=== PATIENT | female | born 1975 | race Caucasian/White ===

== ENCOUNTER 2016-08-14 13:23 | Inpatient (IN) | payer BC ==
--- NOTE | 2016-08-13 19:30 | NUR ---
PATIENT IN BED WATCHING TV. HOB 30 DEGREES. AAOX4. RR EVEN AND UNLABORED. 0 S/S OF DISTRESS. STATES PAIN IS A 4/10 DUE TO A HEADACHE. TYLENOL GIVEN. WILL REASSESS. IV TO LEFT FA PATENT WITH NO REDNESS OR SWELLING. FAMILY AT BEDSIDE. SRX2. BED LOW. CALL LIGHT WITHIN REACH.
[~2016-08-14] VITALS: Ht 170.2 cm; Wt 122.7 kg
--- NOTE | 2016-08-14 14:00 | NUR ---
RECEIVED TO ROOM [address] MASSEY'S OFFICE. A/O X3. REPORTS NO C/O AT THIS TIME. HAVEING GENERALIZED PAIN. SKIN IS INTACT. FAMILY IN ROOM NOW. IV SITED TO LEFT FOREARM AFTER ONE ATTEMPT WITH 20G. OFF UNIT VIA FOR CXR.
[2016-08-14 14:01] VITALS: BP 121/74; Ht 170.2 cm; Wt 122.7 kg
[2016-08-14 14:27] LABS: BASOPHILS 0.8 % (0.0-2.0); EOSINOPHILS 0.3 % (0-7); HEMATOCRIT 40.6 % (36.0-48.0); HEMOGLOBIN 13.7 g/dL (12-16); IMMATURE GRANULOCYTES 0.6 % (0-5); LYMPHOCYTES 36.2 % (15-50); MCHC 33.7 g/dL (31.0-37.0); MCV 85.8 fL (80.0-100.0); MEAN PLATELET VOLUME 10.3 fL (7.4-10.4); MONOCYTES 18.1 % (2-11); RBC 4.73 10x6/uL (4.00-5.40); RDW 14.1 % (11.5-14.5); WBC 3.6 10x3/uL (4.8-10.8)
--- NOTE | 2016-08-14 14:38 | NUR ---
Patient Name: ANABELA GEORGE Admission Status: Elective Accout number: [id number] Admission Date: 08-14-2016 : 1975 Admission Diagnosis: Attending: CANDY Current LOS: 1 Anticipated DC Date: 08-16-2016 Planned Disposition: Home or Self Care Primary Insurance: [employer] [facility] Discharge Planning Comments: CM MET WITH PATIENT REGARDING D/C NEEDS AND PLANS. PATIENT STATED SHE LIVES WITH HER FAMILY AND HER SPOUSE (ADÁN) WILL DRIVE HER HOME AT DISCHARGE. PATIENT STATED SHE IS INDEPENDENT WITH HER CARE AND HAS NO DME AT HOME. PATIENT STATED THERE ARE NO STEPS OR STAIRS AT HER HOME. PATIENTS PCP IS DR. VALERIO AND USES [email or web address] AT THE [facility]. PATIENT HAS NOT HAD HOME HEALTH. CM WILL CONTINUE TO FOLLOW PATIENT WITH D/C NEEDS AND PLANS. [facility] AT [address] ADÁN GEORGE (SPOUSE) [phone] Proposal Lead Writer: Eusebia Bosch Is the patient Alert and Oriented? Yes 0 * How many steps to enter\exit or inside your home? 0 0 * PCP DR. VALERIO 0 * [facility] 0 * Preadmission Environment Home with Family 0 * ADLs Independent 0 * Equipment None 0 * List name and contact numbers for known caregivers / representatives who currently or will assist patient after discharge: ADÁN GEORGE (SPOUSE) [phone] 0 * Community resources currently utilized None 0 * Additional services required to return to the preadmission environment? Yes 0 * Can the patient safely return to the preadmission environment? Yes 0 * Has this patient been hospitalized within the prior 30 days at any hospital? No 0 Grand Total: 0
[2016-08-14 14:40] LABS: APTT 28.3 SECONDS (22.8-39.4); INR 1.14 (0.85-1.17); PROTIME 14.5 SECONDS (11.6-15.0)
[2016-08-14 14:41] LABS: D-DIMER-QUANTITATIVE 3.14 ug/mLFEU (0.20-0.54); PLATELET COUNT 45 10x3/uL (130-400)
[2016-08-14 15:04] LABS: ALBUMIN 3.2 g/dL (3.4-5.0); ANION GAP 12.4 mmol/L (8-16); BILIRUBIN - TOTAL 1.37 mg/dL (0.2-1.3); CALCIUM 8.5 mg/dL (8.5-10.1); CARBON DIOXIDE 27.1 mmol/L (21.0-32.0); CREATININE - SERUM 1.1 mg/dL (0.6-1.3); POTASSIUM - SERUM 3.5 mmol/L (3.5-5.1); PROTEIN - SERUM 6.4 g/dL (6.4-8.2)
[2016-08-14] MEDS ORDERED: TYLENOL W/CODEI1 TAB PO (15:23)
[2016-08-14] MEDS ORDERED: CIPRO500 MG PO (15:23)
[2016-08-14] MEDS ORDERED: BACTRIM DS TABL1 TAB PO (15:24)
[2016-08-14] MEDS ORDERED: EFFEXOR XR150 MG PO (15:25)
[2016-08-14] MEDS ORDERED: IMITREX100 MG PO (15:26)
[2016-08-14] MEDS ORDERED: AMBIEN10 MG PO (15:27)
[2016-08-14] MEDS ORDERED: OMEPRAZOLE20 M1 PO (15:27)
[2016-08-14 15:38] VITALS: BP 134/74
--- NOTE | 2016-08-14 16:30 | NUR ---
URINE SPECIMEN SENT TO LAB.
[2016-08-14 17:27] LABS: APPEARANCE CLEAR (CLEAR); BILIRUBIN NEGATIVE (NEGATIVE); COLOR YELLOW (YELLOW); GLUCOSE NEGATIVE (NEGATIVE); KETONE NEGATIVE (NEGATIVE); LEUKOCYTE ESTERASE NEGATIVE (NEGATIVE); NITRITE NEGATIVE (NEGATIVE); PROTEIN NEGATIVE (NEGATIVE); UROBILINOGEN NORMAL (NORMAL)
--- NOTE | 2016-08-14 18:31 | NUR ---
ULTRA SOUND COMPLETED. SITTING UP IN BED EATING SUPPER. DENIES NEEDS. NO CHANGES NOTED.
[2016-08-14 20:00] VITALS: BP 99/56
[2016-08-15] VITALS: BP 95/53
--- NOTE | 2016-08-15 01:37 | NUR ---
PATIENT SLEEPING WITH NO DISTRESS NOTED. FAMILY STILL AT BEDSIDE.
[2016-08-15 04:00] VITALS: BP 122/73
[2016-08-15 07:27] LABS: EOSINOPHILS 0.3 % (0-7); HEMATOCRIT 37.8 % (36.0-48.0); HEMOGLOBIN 12.8 g/dL (12-16); IMMATURE GRANULOCYTES 0.5 % (0-5); LYMPHOCYTES 36.8 % (15-50); MCH 28.9 pg (26.0-34.0); MCHC 33.9 g/dL (31.0-37.0); MCV 85.3 fL (80.0-100.0); MEAN PLATELET VOLUME 11.3 fL (7.4-10.4); MONOCYTES 17.5 % (2-11); NEUTROPHILS 43.9 % (40-80); RBC 4.43 10x6/uL (4.00-5.40); RDW 14.1 % (11.5-14.5); WBC 3.8 10x3/uL (4.8-10.8)
[2016-08-15 07:31] LABS: PLATELET COUNT 47 10x3/uL (130-400)
[2016-08-15 07:56] VITALS: BP 174/93
--- NOTE | 2016-08-15 08:06 | NUR ---
TO XRAY VIA BED. PT AWAKE AND ALERT.
--- NOTE | 2016-08-15 09:10 | NUR ---
DR. MASSEY RETURN CALLED AND INFORMED ABOUT PLT COUNT. STATES I WILL BE TO SEE THE PT.
[2016-08-15 09:39] LABS: PATH REVIEW PERIPHERAL SMEAR REVIEWED
[2016-08-15 11:39] LABS: HEMOGLOBIN A1C 5.5 % (4.8-6.0)
[2016-08-15 11:49] LABS: ALBUMIN 2.9 g/dL (3.4-5.0); ANION GAP 11.1 mmol/L (8-16); BILIRUBIN - TOTAL 1.16 mg/dL (0.2-1.3); CALCIUM 8.3 mg/dL (8.5-10.1); CARBON DIOXIDE 25.6 mmol/L (21.0-32.0); POTASSIUM - SERUM 3.7 mmol/L (3.5-5.1); PROTEIN - SERUM 6.2 g/dL (6.4-8.2); THYROID STIMULATING HORMONE 2.61 uIU/mL (0.36-3.74)
[2016-08-15 15:31] VITALS: BP 92/47
--- NOTE | 2016-08-15 19:00 | NUR ---
PATIENT SUPINE IN BED WATCHING TV. HOB 30 DEGREES. AAOX4. RR EVEN AND UNLABORED. 0 S/S OF DISTRESS. DENIES PAIN AT THIS TIME. IV TO LEFT FA PATENT WITH NO REDNESS OR SWELLING. DRESSING TO RIGHT LOWER BACK. AT BEDSIDE. SRX2. BED LOW. CALL LIGHT WITHIN REACH.
[2016-08-15 20:00] VITALS: BP 102/55
--- NOTE | 2016-08-15 20:30 | NUR ---
ASSESSMENT COMPLETE. NIGHTTIME MEDS GIVEN. NO OTHER NEEDS AT THIS TIME.
--- NOTE | 2016-08-15 22:40 | NUR ---
IV TO LEFT FA LEAKING. RESITED TO RIGHT WRIST ON FIRST STICK WITH 22 GUAGE. VIBRAMYCIN NOW INFUSING. NORCO GIVEN FOR PAIN AND AMBIEN GIVEN FOR SLEEP PER ORDER.
[2016-08-16] VITALS: BP 111/50
[2016-08-16 04:00] VITALS: BP 122/61
[2016-08-16 06:33] LABS: HEMATOCRIT 33.3 % (36.0-48.0); HEMOGLOBIN 11.4 g/dL (12-16); MCH 29.4 pg (26.0-34.0); MCHC 34.2 g/dL (31.0-37.0); MCV 85.8 fL (80.0-100.0); MEAN PLATELET VOLUME 11.3 fL (7.4-10.4); PLATELET COUNT 51 10x3/uL (130-400); RBC 3.88 10x6/uL (4.00-5.40); RDW 14.5 % (11.5-14.5)
[2016-08-16 06:57] LABS: ALBUMIN 2.7 g/dL (3.4-5.0); ALKALINE PHOSPHATASE 111 U/L (46-116); ALT (SGPT) 162 U/L (10-68); BILIRUBIN - TOTAL 0.88 mg/dL (0.2-1.3); CALC OSMOLALITY 273 mosm/kg (275-300); CALCIUM 8.1 mg/dL (8.5-10.1); CHLORIDE - SERUM 104 mmol/L (98-107); CREATININE - SERUM 0.8 mg/dL (0.6-1.3); GLUCOSE 94 mg/dL (74-106); POTASSIUM - SERUM 3.7 mmol/L (3.5-5.1); PROTEIN - SERUM 5.4 g/dL (6.4-8.2); SODIUM 138 mmol/L (136-145); UREA NITROGEN 8 mg/dL (7-18); eGFR NON AFRICAN AMERICAN 84 mL/min (90-120)
--- NOTE | 2016-08-16 07:30 | NUR ---
PATIENT RECEIVED ALERT IN MID FOFANA POSITION. RESPIRATIONS EVEN AND UNLABORED. FAMILY AT BEDSIDE. DENIES NEEDS. SIDE RAILS UP X2. BED IN LOW POSITION. CALL LIGHT IN REACH.
[2016-08-16 07:40] LABS: EOSINOPHILS 2 % (0-7); LYMPHOCYTES 57 % (15-50); MONOCYTES 15 % (2-11); NEUTROPHILS 18 % (40-80); PLATELET ESTIMATE DECREASED
[2016-08-16 08:09] VITALS: BP 111/52
--- NOTE | 2016-08-16 08:20 | NUR ---
ALERT IN BED. NO SIGNS OF DISTRESS NOTED. SCHEDULED MEDICATION ADMINISTERED. DENIES NEEDS. SIDE RAILS UP X1. BED IN LOW POSITION. CALL LIGHT IN REACH. FAMILY PRESENT.
[2016-08-16 10:17] LABS: HEPATITIS C ANTIBODY <0.1 (0.0-0.9)
--- NOTE | 2016-08-16 11:30 | NUR ---
PATIENT IN LOW FOFANA POSITION RESTING WITH EYES CLOSED. RESPIRATIONS EVEN AND UNLABORED. SIDE RAILS UP X2. BED IN LOW POSITION. CALL LIGHT IN REACH.
[2016-08-16 12:12] VITALS: BP 101/52
--- NOTE | 2016-08-16 13:54 | NUR ---
ALERT IN BED. NO SIGNS OF DISTRESS NOTED. CONTINUES TO RATE PAIN FROM HEADACHE 5/10. NO FURTHER NEEDS VOICED. SIDE RAILS UP X2. BED IN LOW POSITION. CALL LIGHT IN REACH.
--- NOTE | 2016-08-16 16:42 | NUR ---
PATIENT ALERT IN BED WITH FAMILY PRESENT. NO SIGNS OF DISTRESS NOTED. SCHEDULED MEDICATION ADMINISTERED WELL PRN NORCO FOR PAIN 4/10 TO HEAD. DENIES FURTHER NEEDS. SIDE RAILS UP X2. BED IN LOW POSITION. CALL LIGHT IN REACH.
[2016-08-16 16:45] VITALS: BP 103/59
--- NOTE | 2016-08-16 19:00 | NUR ---
PATIENT IN BED WATCHING TV. HOB 30 DEGREES. AAOX4. RR EVEN AND UNLABORED. 0 S/S OF DISTRESS. STATES PAIN IS A 4/10 DUE TO A HEADACHE. IV TO RIGHT WRIST PATENT WITH NO REDNESS OR SWELLING. SCD'S IN ROOM BUT OFF. AT BEDSIDE. SRX2. BED LOW. CALL LIGHT WITHIN REACH.
[2016-08-16 20:30] VITALS: BP 107/57
[2016-08-17 00:08] VITALS: BP 115/65
[2016-08-17 04:30] VITALS: BP 129/63
[2016-08-17 05:01] LABS: BASOPHILS 1.7 % (0.0-2.0); EOSINOPHILS 2.2 % (0-7); HEMATOCRIT 33.7 % (36.0-48.0); HEMOGLOBIN 11.3 g/dL (12-16); IMMATURE GRANULOCYTES 0.7 % (0-5); LYMPHOCYTES 58.6 % (15-50); MCH 29.1 pg (26.0-34.0); MCHC 33.5 g/dL (31.0-37.0); MCV 86.9 fL (80.0-100.0); MEAN PLATELET VOLUME 10.6 fL (7.4-10.4); MONOCYTES 12.2 % (2-11); NEUTROPHILS 24.6 % (40-80); RBC 3.88 10x6/uL (4.00-5.40); RDW 14.6 % (11.5-14.5)
[2016-08-17 05:07] LABS: PLATELET COUNT 85 10x3/uL (130-400); WBC 5.3 10x3/uL (4.8-10.8)
[2016-08-17 05:30] LABS: ALBUMIN 2.7 g/dL (3.4-5.0); ALKALINE PHOSPHATASE 103 U/L (46-116); BILIRUBIN - TOTAL 0.91 mg/dL (0.2-1.3); CALC OSMOLALITY 275 mosm/kg (275-300); CALCIUM 8.6 mg/dL (8.5-10.1); CARBON DIOXIDE 28.2 mmol/L (21.0-32.0); CHLORIDE - SERUM 105 mmol/L (98-107); CREATININE - SERUM 0.8 mg/dL (0.6-1.3); GLUCOSE 92 mg/dL (74-106); POTASSIUM - SERUM 3.7 mmol/L (3.5-5.1); PROTEIN - SERUM 5.8 g/dL (6.4-8.2); SODIUM 139 mmol/L (136-145); UREA NITROGEN 7 mg/dL (7-18); eGFR NON AFRICAN AMERICAN 84 mL/min (90-120)
[2016-08-17 05:32] LABS: ALT (SGPT) 212 U/L (10-68)
--- NOTE | 2016-08-17 07:05 | NUR ---
PATIENT RECEIVED ALERT IN LOW FOFANA POSITION. NO SIGNS OF DISTRESS NOTED. C/O HEADACHE RATES 3/10. DENIES NEEDS. FAMILY AT BEDSIDE. SIDE RAILS UP X2. BED IN LOW POSITION. CALL LIGHT IN REACH.
[2016-08-17 08:30] VITALS: BP 121/45
--- NOTE | 2016-08-17 08:50 | NUR ---
PATIENT ALERT IN HIGH FOFANA POSITION EATING BREAKFAST. TOLERATING WELL. SCHEDULED MEDICATION ADMINISTERED ORDERED. SIDE RAILS UP X2. BED IN LOW POSITION. CALL LIGHT IN REACH.
--- NOTE | 2016-08-17 09:44 | NUR ---
PATIENT UP AMBULATING IN HALLWAY WITHOUT ASSIST. NO SIGNS OF DISTRESS NOTED.
--- NOTE | 2016-08-17 10:00 | NUR ---
PATIENT ALERT IN BED. SCHEDULED MEDICATION ADMINISTERED. SIDE RAILS UP X2. BED IN LOW POSITION. CALL LIGHT IN REACH.
[2016-08-17] MEDS ORDERED: VIBRAMYCIN 100100 MG PO (11:51)
--- NOTE | 2016-08-17 12:04 | NUR ---
IV TO RIGHT WRIST D/C WITH CATH TIP INTACT. SITE COVERED WITH GAUZE AND BANDAID.
[2016-08-17 12:10] LABS: PLT AB - HLA CLASS 1 Negative (Negative); PLT AB - IIb IIIa Positive (Negative); PLT AB - Ia IIa Negative (Negative); PLT AB - Ib IX Negative (Negative)
--- NOTE | 2016-08-17 12:40 | NUR ---
D/C TEACHING AND WRITTEN PRESCRIPTION GIVEN. STATES UNDERSTANDING. AT BEDSIDE.
--- NOTE | 2016-08-17 12:50 | NUR ---
PATIENT D/C HOME. TRANSFERRED DOWNSTAIRS VIA WHEELCHAIR
[2016-08-20 12:17] LABS: RMSF IGM 0.33 index (0.00-0.89)
[2016-08-21 14:21] LABS: EHRLICHIA CHAFF IGG Negative (Neg:<1:64); EHRLICHIA CHAFF IGM Negative (Neg:<1:20); HGE IGG TITER Negative (Neg:<1:64); HGE IGM TITER Negative (Neg:<1:20)
--- NOTE | 2016-10-01 09:49 | DS ---
PATIENT:ANABELA GEORGE :75 MEDICAL RECORD: [id number] DISCHARGE SUMMARY ADMISSION DATE: 08/14/16 DISCHARGE DATE: 08/17/16 DATE OF ADMISSION: 08/14/2016 DATE OF DISCHARGE: 08/17/2016 DIAGNOSES: 1. Urinary tract infection. 2. Hyponatremia. 3. Ileus. 4. Thrombocytopenia. 5. Hypotension. 6. Fever. 7. Migraines. 8. Anxiety. 9. Oral candidiasis, CONSULTS: ____ PROCEDURES: 1. CT-guided bone marrow biopsy. 2. Chest x-ray, which shows no active disease. 3. Ultrasound of the gallbladder which shows mild fatty changes in the liver. There were no gallbladder of biliary tract abnormalities. HOSPITAL COURSE: This is a 41-year-old female patient who had received outpatient treatment for urinary tract infection with Cipro and Bactrim. Today, the patient had had fever for 3 weeks and presented to the [facility], clinic had been put on more oral antibiotic therapy. She progressively got weaker and was admitted to the inpatient setting. She was placed on IV antibiotic therapy with some doxycycline. She was thrombocytopenic, platelet count was [address] Bowen was consulted as well. There was some question as to whether or not the patient's illness was tick-borne. She had several tick bites. The tick serologies were sent and pending at time of discharge. The patient's urine culture grew less than 10,000 colonies of mixed contaminant, which was essentially negative. Today, her flank pain did improve with doxycycline. First, she underwent a bone marrow biopsy for the thrombocytopenia. She did require some correction of her electrolytes during her hospitalization. The patient's symptoms improved. She was thought to be stable for discharge to home to follow up in the outpatient setting. Her bone marrow biopsy results were pending at the time of discharge. See med rec. TRANSINT:[id number] Voice Confirmation ID: [id number] DOCUMENT ID: [id number] Dictated By: LYNETTE HAGER I have interviewed/examined the above patient and agree with these documented findings. at 1421 at 0948 CC: [id number] DICTATION DATE: 09/27/1618 ASSOCIATE MATERIAL HANDLER: 09/27/16 0308 DIS IN 08/17/16 [facility] [address] [place] [address]
== END 2016-08-17 12:52 | disposition home or self-care (01) | DRG 803 ==
LOC: D.MS 13:23
PROVIDERS: Internal Medicine Hematology & Oncology; Radiology Diagnostic Radiology; ADMIT Family Medicine Adult Medicine
PROC: 07DR3ZX Extraction of Iliac Bone Marrow, Percutaneous Approach, Diagnostic (ICD-10-PCS; principal; 2016-08-15 08:06)
PROC: 0Q923ZX Drainage of Right Pelvic Bone, Percutaneous Approach, Diagnostic (ICD-10-PCS; principal; 2016-08-15 08:06)
DX: D69.3 Immune thrombocytopenic purpura (principal); N39.0 Urinary tract infection, site not specified; Z68.41 Body mass index [BMI] 40.0-44.9, adult; I95.9 Hypotension, unspecified; B37.9 Candidiasis, unspecified; F41.8 Other specified anxiety disorders; K21.9 Gastro-esophageal reflux disease without esophagitis; G47.33 Obstructive sleep apnea (adult) (pediatric); E66.9 Obesity, unspecified; F41.0 Panic disorder [episodic paroxysmal anxiety]

== ENCOUNTER 2019-06-08 08:00 | Outpatient (CLI) | payer BC ==
[2016-08-14 14:01] VITALS: BMI 42.4
[~2019-06-08 08:00] MED LIST: AMBIEN10 MG PO; BACTRIM DS TABL1 TAB PO; CIPRO500 MG PO; EFFEXOR XR150 MG PO; IMITREX100 MG PO; OMEPRAZOLE20 M1 PO; TYLENOL W/CODEI1 TAB PO; VIBRAMYCIN 100100 MG PO
== END 2019-06-08 23:59 | disposition home or self-care (01) ==
LOC: D.MAMMO 08:00
PROVIDERS: ATTEND Emergency Medicine
DX: Z12.31 Encounter for screening mammogram for malignant neoplasm of breast (principal)

== ENCOUNTER 2019-06-30 09:00 | Outpatient (CLI) | payer BC ==
[2016-08-14 14:01] VITALS: BMI 42.4
== END 2019-06-30 10:00 | disposition home or self-care (01) ==
LOC: D.MAMMO 09:00
PROVIDERS: ATTEND Emergency Medicine
DX: R92.8 Other abnormal and inconclusive findings on diagnostic imaging of breast (principal)